=== PATIENT | male | born 1995 | race Caucasian/White ===

== ENCOUNTER 2016-08-28 23:02 | Emergency (ER) | payer OTHER ==
[~2016-08-28] VITALS: Ht 172.7 cm; Wt 108.9 kg
[2016-08-28] MEDS ORDERED: AMOX500C PO (23:13)
[2016-08-29] MEDS ORDERED: NORCO, ANEXSIA 5/325MG TABLET (HYDROcodone/ACETAMINOPHEN) PO ONE (00:30)
[2016-08-29] MEDS ORDERED: NORCO 5/325MG TABLET (BULK FOR ED) PO ONE (00:45)
[2016-08-29 00:46] VITALS: BP 136/87
--- NOTE | 2016-08-29 01:26 | REP ---
Clinical: Trauma. Technique: AP, lateral, bilateral oblique and sunrise views of the left knee. Findings: [place] view suggests prepatellar swelling. No acute fracture or dislocation. Joint spaces appear relatively normal for age. Impression: Cannot exclude prepatellar swelling. No acute fracture dislocation. Signed by Esvin Branch MD 08/29/2016 01:18 A
== END 2016-08-29 01:16 | disposition home or self-care (01) ==
LOC: M ED 23:45
DX: S83.412A Sprain of medial collateral ligament of left knee, initial encounter (principal); X50.0XXA Overexertion from strenuous movement or load, initial encounter; Y92.019 Unspecified place in single-family (private) house as the place of occurrence of the external cause; Y93.01 Activity, walking, marching and hiking; Y99.8 Other external cause status; Z79.2 Long term (current) use of antibiotics